=== PATIENT | female | born 1960 | race Hispanic/Latino ===

== ENCOUNTER 2017-07-27 07:03 | Emergency (ER) | payer OTHER ==
[~2017-07-27] VITALS: Ht 160 cm; Wt 84.1 kg
[~2017-07-27 07:03] MED LIST: FLEXERIL10 MG PO
[2017-07-27 08:20] LABS: BASOPHIL COUNT 0.1 K/uL (0-0.1); EOSINOPHIL COUNT 0.5 K/uL (0-0.3); HEMATOCRIT 34.6 % (36.0-46.0); IMMATURE GRANULOCYTE (%) 0.1 % (0.0-0.7); INSTRUMENT ABS NEUTROPHIL CT 3.4 K/uL; LYMPHOCYTE COUNT 2.3 K/uL (1.0-2.8); MCH 28.2 PG (29.0-34.0); MCHC 33.5 G/DL (30.0-36.0); MEAN PLAT.VOLUME 9.8 uM^3 (9.5-12.4); MONOCYTE COUNT 0.4 K/uL (0-0.8); NEUTROPHIL (%) 51.7 % (45-76); NEUTROPHIL COUNT 3.4 K/uL (1.8-6.4); PLATELET COUNT 303 K/uL (156-360); RBC DIS.WIDTH-CV 13.2 % (11.8-14.6); RBC DIS.WIDTH-SD 41.1 % (39-53); RED BLOOD COUNT 4.12 M/uL (3.80-5.20); WHITE BLOOD COUNT 6.7 K/uL (4.1-10.2)
[2017-07-27 08:28] LABS: CHLORIDE 107 mEq/L (99-109); POTASSIUM 3.8 mEq/L (3.7-5.4); SODIUM 141 mEq/L (136-147)
[2017-07-27 08:29] LABS: GLUCOSE 89 mg/dL (70-99)
[2017-07-27 08:31] LABS: ANION GAP 8 MEQ/L (2-14)
[2017-07-27 08:33] LABS: GFR ESTIMATE (CALCULATED) > 59 mL/min/
[2017-07-27 08:34] LABS: UREA NITROGEN (BUN) 12 mg/dL (9-23)
[2017-07-27] MEDS ORDERED: TYLENOL WITH C1 EACH PO (09:41)
[2017-07-27] MEDS ORDERED: MEDROL DOSEPAK4 MG PO (09:41)
[2017-07-27 09:55] VITALS: BP 115/66
== END 2017-07-27 09:57 | disposition home or self-care (01) ==
LOC: EME 07:03
PROVIDERS: Emergency Medicine
DX: M19.042 Primary osteoarthritis, left hand (principal); M77.32 Calcaneal spur, left foot; M25.572 Pain in left ankle and joints of left foot
CPT/HCPCS: 73130; 73610; 80048; 85025; 99281; 99283; J1885